=== PATIENT | male | born 1970 | race Caucasian/White ===

== ENCOUNTER 2018-02-27 07:23 | Day surgery (SDC) | payer OTHER ==
[~2018-02-27] VITALS: Ht 167.6 cm; Wt 99.8 kg
[2018-02-27 08:01] VITALS: BP 115/75
[2018-02-27 10:43] VITALS: BP 107/70
== END 2018-02-27 10:50 | disposition home or self-care (01) ==
LOC: GI 07:23 → OR 09:30 → GI 09:30
PROVIDERS: Internal Medicine Gastroenterology
PROC: 0DJD8ZZ Inspection of Lower Intestinal Tract, Via Natural or Artificial Opening Endoscopic (ICD-10-PCS; principal; 2018-02-27 08:30)
DX: Z12.11 Encounter for screening for malignant neoplasm of colon (principal); K59.00 Constipation, unspecified; K64.8 Other hemorrhoids; Z85.3 Personal history of malignant neoplasm of breast
CPT/HCPCS: 45378; J1200; J1610; J2250; J2310; J3010; J3490